=== PATIENT | female | born 1955 ===

== ENCOUNTER → 2017-02-21 | Outpatient (CLI) | payer OTHER ==
[2017-02-21 21:21] LABS: INR 2.29; PROTHROMBIN TIME 26.4 seconds (11.9-14.5)
[2017-02-28 16:37] LABS: INR 1.11; PROTHROMBIN TIME 14.9 seconds (11.9-14.5)
== END ==
LOC: NPA 10:00
DX: Z02.89 Encounter for other administrative examinations (principal)
CPT/HCPCS: 36415; 85610

== ENCOUNTER → 2017-02-28 | Outpatient (CLI) | payer OTHER | LOC: NPA 11:00 | DX: Z02.89 Encounter for other administrative examinations (principal) ==

== ENCOUNTER → 2017-03-07 | Outpatient (CLI) | payer OTHER ==
[2017-03-07 15:42] LABS: INR 1.17; PROTHROMBIN TIME 15.5 seconds (11.9-14.5)
== END ==
LOC: NPA 12:30
DX: Z02.9 Encounter for administrative examinations, unspecified (principal)
CPT/HCPCS: 36415; 85610

== ENCOUNTER → 2017-03-14 | Outpatient (CLI) | payer OTHER ==
[2017-03-14 17:44] LABS: INR 1.2; PROTHROMBIN TIME 15.8 seconds (11.9-14.5)
== END ==
LOC: NPA 11:30
DX: Z02.89 Encounter for other administrative examinations (principal)
CPT/HCPCS: 36415; 85610